=== PATIENT | female | born 1980 | race Caucasian/White ===

== ENCOUNTER 2016-09-07 06:27 | Emergency (ER) | payer MEDICARE, MEDICAID ==
[~2016-09-07 06:27] MED LIST: /AMIT10TA PO; /ONDA4TA PO; ALPR0.25 PO; AMBI12.52 PO; ANTI25TA PO; ARTIDRO OU; CITA40TA PO; FISH100035 PO; IBUP200T2 PO; KLOR10TA5 PO; LIDO1DIS2 TD; MAGN400T5 PO; NYSTATIN TOPICAL TOP; OMEP40CA2 PO; PLAQ200T PO; PRED20TA PO; PROC2.5C PR; TOPA25TA PO; ULTR50TA PO
[2016-09-07 07:29] LABS: BASO # 0.1 K/mm3 (0.0-0.2); BASO % 1.2 % (0.0-1.0); EOS # 0.1 K/mm3 (0.0-0.50); EOS % 1.5 % (0.0-3.0); LARGE UNSTAINED CELL # 0.1 K/mm3 (0.0-0.4); LARGE UNSTAINED CELL % 1.9 % (0.0-4.0); LYMPH # 3.1 K/mm3 (1.5-4.5); LYMPH % 41.5 % (24.0-44.0); MEAN CORPUSCULAR HEMOGLOBIN 29.1 pg (27.0-33.0); MEAN CORPUSCULAR HGB CONC 33.7 g/dl (32.0-36.5); MEAN CORPUSCULAR VOLUME 86.2 fl (80.0-96.0); MONO # 0.3 K/mm3 (0.0-0.8); MONO % 4.4 % (0.0-5.0); NEUTROPHILS # 3.5 K/mm3 (1.8-7.7); NEUTROPHILS % 49.5 % (36.0-66.0); PLATELET COUNT, AUTOMATED 271 k/mm3 (150-450); RED CELL DISTRIBUTION WIDTH 17.2 % (11.5-14.5); WHITE BLOOD COUNT 7.1 K/mm3 (4.0-10.0)
[2016-09-07] MEDS ORDERED: MORPHINE 4 MG/ML 1ML SYRINGE As Ordered ONE (07:46)
[2016-09-07 07:50] LABS: ANION GAP 8 MEQ/L (8-16); BLOOD UREA NITROGEN 13 MG/DL (7-18); CALCIUM LEVEL 8.9 MG/DL (8.5-10.1); CARBON DIOXIDE LEVEL 28 MEQ/L (21-32); CHLORIDE LEVEL 103 MEQ/L (98-107); CREATININE FOR GFR 0.77 MG/DL (0.55-1.02); GLOMERULAR FILTRATION RATE > 60.0 (>60); GLUCOSE, FASTING 123 MG/DL (70-105); POTASSIUM SERUM 4.5 MEQ/L (3.5-5.1); SODIUM LEVEL 139 MEQ/L (136-145)
[2016-09-07 08:02] LABS: ALBUMIN 3.6 GM/DL (3.2-5.2); ALBUMIN/GLOBULIN RATIO 1.13 (1.00-1.93); ALKALINE PHOSPHATASE 80 U/L (45-117); ALT/SGPT 32 U/L (12-78); AST/SGOT 27 U/L (15-37); BILIRUBIN,DIRECT < 0.1 MG/DL (0.0-0.2); BILIRUBIN,TOTAL 0.3 MG/DL (0.2-1.0); TOTAL PROTEIN 6.8 GM/DL (6.4-8.2)
--- NOTE | 2016-09-07 08:16 | ECGEPIP ---
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
[2016-09-07] MEDS ORDERED: KETOROLAC 30 MG/ML VIAL (J1885) As Ordered ONE (08:17)
[2016-09-07] MEDS ORDERED: ASPIRIN 81 MG CHEW TABLET As Ordered ONE (08:17)
[2016-09-07] MEDS ORDERED: ISOVUE-370 76% 100ML VIAL (Q9967) As Ordered ONE (08:19)
[2016-09-07] MEDS ORDERED: LORazepam 2 MG/ML VIAL (J2060) As Ordered ONE (08:23)
[2016-09-07] MEDS ORDERED: ONDANSETRON 4MG/2ML VIAL (J2405) As Ordered ONE (08:45)
[2016-09-07] MEDS ORDERED: GI COCKTAIL 50ML BTL(HYOSCYAMINE/MAALOX/LIDOCAINE VISCOUS)(1:3:1) As Ordered ONE (10:03)
[2016-09-07] MEDS ORDERED: HYDROmorphone HCL 1 MG/ML SYRINGE (J1170) As Ordered ONE (10:26)
--- NOTE | 2016-09-07 14:42 | EDDOCDS ---
Nurse's Notes [facility] Name: Jennifer Leonardo Age: 35 yrs Sex: Female : 1980 Arrival Date: 09/07/2016 Time: 06:27 Bed 8 Private MD: Diagnosis: Other chest pain-Chest wall pain Presentation: 09/07 06:44 Presenting complaint: Patient states: shes been sick since Tuesday with nausea, cough, ko2 runny nose and "episodes of what felt like low blood sugar". Pt was taking over the counter medications but they weren't helping and pt has been unable to eat. She was at the movies with her kids last night and her back started hurting. Around 300 am she stated that she started taking short breaths as well as holding her breath as it hurt to much to take a deep breath. Aspirin was not taken prior to arrival. Adult Sepsis Screening: The patient does not have new or worsening altered mentation. Patient's respiratory rate is less than 22. Systolic blood pressure is greater than 100. Patient has a qSOFA score of 0- Negative Sepsis Screen. Suicide/Homicide risk assessment- the patient denies having any suicidal and/or homicidal ideations and does not present with any other emotional, behavioral or mental health complaints. 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 Transition of care: patient was not received from another setting of care. 06:44 Acuity: LEXII Level 2 ko2 06:44 Method Of Arrival: Walkin/Carried/Asstd ko2 Triage Assessment: 07:15 Cardiovascular: Chest pain is described as Pain is 10 out of 10 on a pain scale. jc4 radiates Does not radiate. episodes are continuous began over night. 10:08 HIV screening NA for this visit Offered previously. 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 cetirizine 10 mg oral tab 1 tab once daily 2. acyclovir 400 mg Oral tab 1 tab 2 times per day 3. acyclovir ointment 4. Adderall XR 10 mg Oral cp24 1 cap once daily 5. Adderall XR 30 mg Oral cp24 1 cap once daily 6. Ambien 10 mg Oral tab 1 tab once daily 7. bactroban 22 gm 8. calcipotrene 120gm 9. cyclobenzaprine 10 mg Oral tab 1 tab 3 times per day 10. TriNessa Lo 0.18/0.215/0.25 mg-25 mcg oral tab 1 tab once daily 11. doxycycline hyclate 100 mg Oral cap 1 cap every 12 hours 12. Diflucan 200 mg oral tab 1 tab weekly 13. docusate sodium 100 mg Oral cap 1 cap 2 times per day 14. Drisdol 50,000 unit oral cap take 1 capsule as directed:TIW x 4wks, BIW x 8wks 15. furosemide 40 mg oral tab take 1 tab oral daily-bid as needed 16. magnesium oxide 400 mg Oral tab twice a day 17. omeprazole 40 mg Oral cpDR 1 cap once daily 18. ciclopirox topical topical take 1 small amount topical 2 times a day to affected toenails 19. Pristiq 100 mg Oral Tb24 20. propranolol 20 mg oral tab 2 times per day 21. Salex 6 % topical sham daily 22. senna 8.6 mg oral tab once daily 23. Xanax 0.5 mg oral tab 2 tabs 2x day prn 24. Zofran Oral take 4-8mg oral every 8 hours 25. Humira 40 mg/0.8 mL subcutaneous sykt 26. Probiotic Complex oral oral - PMHx: Sarcoidosis; Neurosarcoidosis; hyperlipidemia; Colitis; Lupus; Reynaud's; Syringomelia; - PSHx: Cholecystectomy; Appendectomy; - Family history: Not pertinent. - Social history: No barriers to communication noted, The patient speaks fluent Azeri, Smoking status: Patient states was never smoker of tobacco. - : The pt / caregiver states he / she is not on anticoagulants. Home medication list is obtained from home medication list. - Exposure Risk Screening:: None identified. Screenin:50 Screening information is obtained from the patient. Assistance ADL's: Requires jc4 assistance with medication administration, assistance is provided by family members. Abuse/DV Screen: The patient / caregiver reports he/she is: not in a situation that causes fear, pain or injury. 08:50 Fall risk: The following interventions are performed due to a positive Fall Risk jc4 Screen: Fall Risk is added to Special Handling on the patient Summary Screen. A Fall Risk Bracelet was applied to the patient. Side Rails are placed in the up position. A Call Motley is given with instruction to call for help when getting out of bed. 14:37 Fall risk: At risk due to apparent chemical impairment. Nutritional screening: No jc4 deficits noted. Advance Directives: There is no active DNR order. home support is adequate. Assessment: 08:20 General: Pt lying on stretcher. Sobbing, yelling on stretcher. Medicated per order. Pt jc4 reports squeezing pain in chest that radiates into back. 08:49 General: Pt lying on stretcher. Respirations easy and full. Pt complains of a squeezing jc4 sensation in chest, states is currently "10/10" at this time. No longer hyperventilating. Mother at bedside, supportive. 09:31 General: Pt lying on stretcher, moaning, uncomfortable. Complains of squeezing jc4 sensation in chest. States, "I just need something to relax the muscles". Crying. Mother at bedside, attentive and loving. 10:07 General: Appears uncomfortable. General: "my chest hurts, my back hurts, and this stuff jc4 isn't gonna take away the back pain". Pain: Pain currently is 10 out of 10 on a pain scale. Neurological: Level of Consciousness is awake, alert, Oriented to person, place, time. Cardiovascular: Rhythm is sinus rhythm No ectopy. Respiratory: Respiratory effort is even, Respiratory pattern is regular, symmetrical. Derm: Skin is pink, warm & dry. 10:09 General: When patient asked if she thought she could lie still for the CT, states, "not jc4 right now". 10:10 General: Pt refusing to keep blood pressure cuff on. jc4 10:24 General: Pt lying on stretcher, quiet and still until addressed, and then starts jc4 sniffing. States, "I need that combination. The pain medication and the Ativan". Pt made aware has additional medication orders. 10:31 General: Pt states, "the tightness is a little less, but it just hurts. It's like I've jc4 been in an accident, it hurts all over." Continues to sniffle. States, "Dilaudid always works". 11:15 General: Pt lying on stretcher with eyes closed. Respirations easy and full. Mom jc4 states, "she's finally sleeping". analytical lab analyst - sinus rhythm without ectopy. 12:47 General: Pt returned from CT. Lying on stretcher with eyes closed. Respirations easy jc4 and full. Pt states that pain "is starting to come back, can you let them know? I just don't want it to get too bad again". analytical lab analyst - sinus rhythm without ectopy. Mother at bedside. 14:34 General: Appears in no apparent distress, Behavior is cooperative. Neurological: jc4 patient is drowsy. Respiratory: Airway is patent Respiratory effort is even, unlabored, Respiratory pattern is regular, symmetrical. Derm: Skin is pink, warm & dry. Vital Signs: 06:41 BP 124 / 79 LA Supine (auto/reg); Pulse 88 MON; Resp 24 S; Temp 97.3(O); Pulse Ox 95% cln on R/A; Pain 9/10; 08:05 BP 127 / 91 (auto/); jc4 08:05 Pulse 82 MON; Pulse Ox 95% ; jc4 08:07 BP 158 / 113 (auto/); jc4 08:07 Pulse 106 MON; Pulse Ox 95% ; jc4 08:08 BP 158 / 113 RA Supine (auto/reg); dem1 08:09 BP 127 / 91 LA Supine (auto/reg); dem1 08:21 Weight 107.5 kg (R); Height 5 ft. 6 in. (167.64 cm); jc4 08:46 Pulse 66 MON; Pulse Ox 96% ; jc4 08:48 BP 128 / 64 (auto/); jc4 08:50 Pain 10/10; jc4 09:03 BP 137 / 73 (auto/); jc4 09:03 Pulse 72 MON; Pulse Ox 98% ; jc4 09:18 BP 199 / 98 (auto/); jc4 09:18 Pulse 74 MON; Pulse Ox 97% ; jc4 10:00 Pulse 62 MON; Pulse Ox 99% ; jc4 10:01 BP 180 / 77 (auto/); jc4 10:06 BP 180 / 77; Pulse 98; Resp 20; Temp 96.8(O); Pulse Ox 100% on R/A; Pain 10/10; jc4 10:22 Pulse 70 MON; Pulse Ox 98% ; jc4 10:23 BP 132 / 69 (auto/); jc4 10:31 BP 132 / 69; Pulse 78; Resp 20; Pulse Ox 99% on R/A; Pain 8/10; jc4 10:32 Pulse 80 MON; Pulse Ox 97% ; jc4 10:33 BP 123 / 64 (auto/); jc4 10:48 BP 124 / 63 (auto/); jc4 10:48 Pulse 82 MON; Pulse Ox 94% ; jc4 11:03 BP 126 / 66 (auto/); jc4 11:03 Pulse 78 MON; Pulse Ox 93% ; jc4 11:18 BP 122 / 64 (auto/); jc4 11:18 Pulse 76 MON; Pulse Ox 93% ; jc4 11:32 Pulse 84 MON; Pulse Ox 94% ; jc4 11:33 BP 129 / 72 (auto/); jc4 11:47 Pulse 84 MON; Pulse Ox 98% ; jc4 11:48 BP 117 / 56 (auto/); jc4 12:03 BP 108 / 58 (auto/); jc4 12:03 Pulse 62 MON; Pulse Ox 96% ; jc4 12:18 BP 109 / 56 (auto/); jc4 12:19 Pulse 64 MON; Pulse Ox 96% ; jc4 12:33 BP 95 / 53 (auto/); jc4 12:33 Pulse 66 MON; Pulse Ox 98% ; jc4 12:45 BP 105 / 50 (auto/); jc4 12:46 Pulse 62 MON; Pulse Ox 100% ; jc4 14:38 BP 118 / 68; Pulse 81; Resp 20; Temp 97.8(O); Pulse Ox 96% on R/A; jc4 08:21 Body Mass Index 38.25 (107.50 kg, 167.64 cm) [facility] Vitals: 14:36 Log In Time: September 07, 2016 at 06:29. [facility] ED Course: 06:28 Patient visited by Chata Stover. lja 06:28 Patient moved to Waiting lja 06:35 Tri Parra,RN is Primary Nurse. ko2 06:35 Patient moved to 8 ko2 06:38 Pt greeted and oriented to ED. Patient advised of names of staff involved in care, marissa location of call motley, wait times and NPO status. Accompanied by MOTHER, Patient has correct armband on for positive identification. Placed in gown. Bed in low position. Call light in reach. Side rails up X2. analytical lab analyst on. Pulse ox on. NIBP on. 06:41 Patient visited by Marce Mccabe PCA. cln 06:41 EKG done. (by ED staff). Reviewed by Chapin Zayas MD. cln 06:44 Patient visited by Tri Parra RN. ko2 06:47 Triage Initiated ko2 06:58 Bernadette Huitron MD is Attending Physician. sd1 07:00 Ramila Daley RN is Primary Nurse. jc4 07:07 Dulce Barahona DO is PHCP. bs6 07:15 The patient / caregiver is instructed regarding the plan of care and ED course. jc4 07:23 Basic Metabolic Profile Sent. jc4 07:23 CBC with Diff Sent. jc4 07:23 Cardiac Injury Profile Sent. jc4 07:23 Troponin Sent. jc4 07:24 Inserted saline lock: 20 gauge in left forearm The patient tolerated the procedure well.jc4 07:28 Patient visited by Dulce Barahona DO. bs6 07:28 Patient visited by Dulce Barahona DO. bs6 07:31 Primary Nurse role handed off by Tri Parra RN kpj 08:10 Patient visited by Tai Menendez. dem1 08:35 EKG done. (by ED staff). Reviewed by Dulce Barahona DO. dem1 08:36 EKG-ADULT Returned. EDMS 08:39 Patient visited by Tai Menendez. dem1 09:30 Patient visited by Ramila Daley RN. jc4 09:38 Patient visited by Lois Caldwell PCA. ct3 09:38 EKG done. (by ED staff). Reviewed by Bernadette Huitron MD. ct3 09:58 [facility] [place] Agreement was scanned into [employer] and attached to record. lg 10:09 Patient visited by Ramila Daley RN. jc4 10:28 Patient visited by Ramila Daley RN. jc4 11:48 Patient visited by Ramila Daley RN. jc4 12:46 Patient visited by Lois Caldwell PCA. ct3 12:47 Patient visited by Ramila aDley RN. jc4 14:38 Discontinued lock intact, bleeding controlled, pressure dressing applied, No jc4 redness/swelling at site. No procedures done that require assistance. Administered Medications: 07:51 Drug: morphine 4 mg [morphine 4 mg/mL intravenous cartridge (1 mL)] Route: IVP; Site: jc4 left forearm; 08:21 Drug: ketorolac 30 mg [ketorolac 30 mg/mL (1 mL) injection solution (1 mL)] Route: IVP; [facility] Site: left forearm; 08:50 Follow up: Pain 06/14 Adult [facility] 08:26 Drug: LORazepam 1 mg [lorazepam 2 mg/mL injection solution (0.5 mL)] Route: IVP; Site: [facility] left forearm; 08:28 Drug: Aspirin 81 mg [aspirin 81 mg chewable tablet (1 tabs)] Route: PO; [facility] 08:49 Drug: Ondansetron 4 mg [ondansetron HCl 2 mg/mL intravenous solution (2 mL)] Route: [facility] IVP; Site: left forearm; 09:31 Drug: LORazepam 1 mg [lorazepam 2 mg/mL injection solution (0.5 mL)] Route: IVP; Site: 4 left forearm; 10:06 Follow up: BP 180 / 77; Pulse 98 bpm; Resp 20 bpm; Temp 96.8 Oral; Pulse Ox 100% RA; [facility] Pain 10 Adult 10:06 Drug: GI Cocktail - (Alum-Mag Hydroxide-Simeth Suspension 225 mg-200 mg-25 mg/5 mL 30 jc4 ml, Lidocaine Liquid 2 % 10 ml, Hyoscyamine Liquid 10 ml) Route: PO; 10:31 Follow up: BP 132 / 69; Pulse 78 bpm; Resp 20 bpm; Pulse Ox 99% RA; Pain 04/14 Adult [facility] 10:30 Drug: Dilaudid - HYDROmorphone 0.5 mg [hydromorphone 1 mg/mL injection syringe (0.5 jc4 mL)] Route: IVP; Site: left forearm; Order Results: Lab Order: Basic Metabolic Profile; SPEC'M 09/07/16 07:22 Test: GLUCOSE, FASTING; Value: 123; Range: 70-105; Abnormal: Above high normal; Units: MG/DL; Status: F Test: BLOOD UREA NITROGEN; Value: 13; Range: 7-18; Units: MG/DL; Status: F Test: CREATININE FOR GFR; Value: 0.77; Range: 0.55-1.02; Units: MG/DL; Status: F Test: GLOMERULAR FILTRATION RATE; Value: > 60.0; Range: >60; Status: F Test: SODIUM LEVEL; Value: 139; Range: 136-145; Units: MEQ/L; Status: F Test: POTASSIUM SERUM; Value: 4.5; Range: 3.5-5.1; Units: MEQ/L; Status: F Test: CHLORIDE LEVEL; Value: 103; Range: 98-107; Units: MEQ/L; Status: F Test: CARBON DIOXIDE LEVEL; Value: 28; Range: 21-32; Units: MEQ/L; Status: F Test: ANION GAP; Value: 8; Range: 8-16; Units: MEQ/L; Status: F Test: CALCIUM LEVEL; Value: 8.9; Range: 8.5-10.1; Units: MG/DL; Status: F Test Note: ; Units are mL/min/1.73 m2 Chronic Kidney Disease Staging per NKF: Stage I & II GFR >=60 Normal to Mildly Decreased Stage III GFR 30-59 Moderately Decreased Stage IV GFR 15-29 Severely Decreased Stage V GFR <15 Very Little GFR Left ESRD GFR <15 on LINTER SAW SHARPENER Lab Order: CBC with Diff; SPEC'M 09/07/16 07:22 Test: WHITE BLOOD COUNT; Value: 7.1; Range: 4.0-10.0; Units: K/mm3; Status: F Test: RED BLOOD COUNT; Value: 4.40; Range: 4.00-5.40; Units: M/mm3; Status: F Test: HEMOGLOBIN; Value: 12.8; Range: 12.0-16.0; Units: g/dl; Status: F Test: HEMATOCRIT; Value: 37.9; Range: 36.0-47.0; Units: %; Status: F Test: MEAN CORPUSCULAR VOLUME; Value: 86.2; Range: 80.0-96.0; Units: fl; Status: F Test: MEAN CORPUSCULAR HEMOGLOBIN; Value: 29.1; Range: 27.0-33.0; Units: pg; Status: F Test: MEAN CORPUSCULAR HGB CONC; Value: 33.7; Range: 32.0-36.5; Units: g/dl; Status: F Test: RED CELL DISTRIBUTION WIDTH; Value: 17.2; Range: 11.5-14.5; Abnormal: Above high normal; Units: %; Status: F Test: PLATELET COUNT, AUTOMATED; Value: 271; Range: 150-450; Units: k/mm3; Status: F Test: NEUTROPHILS %; Value: 49.5; Range: 36.0-66.0; Units: %; Status: F Test: LYMPH %; Value: 41.5; Range: 24.0-44.0; Units: %; Status: F Test: MONO %; Value: 4.4; Range: 0.0-5.0; Units: %; Status: F Test: EOS %; Value: 1.5; Range: 0.0-3.0; Units: %; Status: F Test: BASO %; Value: 1.2; Range: 0.0-1.0; Abnormal: Above high normal; Units: %; Status: F Test: LARGE UNSTAINED CELL %; Value: 1.9; Range: 0.0-4.0; Units: %; Status: F Test: NEUTROPHILS #; Value: 3.5; Range: 1.8-7.7; Units: K/mm3; Status: F Test: LYMPH #; Value: 3.1; Range: 1.5-4.5; Units: K/mm3; Status: F Test: MONO #; Value: 0.3; Range: 0.0-0.8; Units: K/mm3; Status: F Test: EOS #; Value: 0.1; Range: 0.0-0.50; Units: K/mm3; Status: F Test: BASO #; Value: 0.1; Range: 0.0-0.2; Units: K/mm3; Status: F Test: LARGE UNSTAINED CELL #; Value: 0.1; Range: 0.0-0.4; Units: K/mm3; Status: F Lab Order: Cardiac Injury Profile; SPEC'M 09/07/16 07:22 Test: CPK CREATINE PHOSPHOKINASE; Value: 79; Range: 26-192; Units: U/L; Status: F Test: CK-MB VALUE MASS; Value: 1.0; Range: 0.0-3.6; Units: NG/ML; Status: F Test: MB/CK RELATIVE INDEX; Value: 1.26; Range: < OR =4; Status: F Test Note: ; DIAGNOSIS CRITERIA MMB ng/ml Relative Index (RI) NON-AMI < or = 5 N/A NICHOLAS ZONE > 5 < or = 4 AMI > 5 > 4 Lab Order: Troponin; [facility] 09/07/16 07:22 Test: TROPONIN I; Value: < 0.02; Range: < 0.10; Units: NG/ML; Status: F Test Note: ; Troponin I Reference Interval for My [employer] LOCI: 99th Percentile= 0.00-0.045 ng/ml Risk Stratification: <= 0.10 ng/ml Decreased Risk for Adverse Clinical Events. 0.10-1.50 ng/ml Increased Risk for Adverse Clinical Events. Evaluation of additional criterion and/or repeat testing in 2-6 hours is suggested to rule out myocardial damage. >= 1.50 ng/ml Indicative of Myocardial Injury. Lab Order: LIPASE; [facility] 09/07/16 07:22 Test: LIPASE; Value: 236; Range: 73-393; Units: U/L; Status: F Lab Order: LIVER PROFILE; [facility] 09/07/16 07:22 Test: AST/SGOT; Value: 27; Range: 15-37; Units: U/L; Status: F Test: ALT/SGPT; Value: 32; Range: 12-78; Units: U/L; Status: F Test: ALKALINE PHOSPHATASE; Value: 80; Range: 45-117; Units: U/L; Status: F Test: BILIRUBIN,TOTAL; Value: 0.3; Range: 0.2-1.0; Units: MG/DL; Status: F Test: BILIRUBIN,DIRECT; Value: < 0.1; Range: 0.0-0.2; Units: MG/DL; Status: F Test: TOTAL PROTEIN; Value: 6.8; Range: 6.4-8.2; Units: GM/DL; Status: F Test: ALBUMIN; Value: 3.6; Range: 3.2-5.2; Units: GM/DL; Status: F Test: ALBUMIN/GLOBULIN RATIO; Value: 1.13; Range: 1.00-1.93; Status: F Lab Order: D-Dimer Quant; SPEC'M 09/07/16 08:18 Test: D-DIMER QUANT; Value: 417.5; Range: <500; Units: ng/ml; Status: F Lab Order: CARDIAC MARKER PANEL; SPEC'M 09/07/16 09:55 Test: CPK CREATINE PHOSPHOKINASE; Value: 56; Range: 26-192; Units: U/L; Status: F Test: CK-MB VALUE MASS; Value: 1.0; Range: 0.0-3.6; Units: NG/ML; Status: F Test: MB/CK RELATIVE INDEX; Value: 1.78; Range: < OR =4; Status: F Test: TROPONIN I; Value: < 0.02; Range: < 0.10; Units: NG/ML; Status: F Test Note: ; DIAGNOSIS CRITERIA MMB ng/ml Relative Index (RI) NON-AMI < or = 5 N/A NICHOLAS ZONE > 5 < or = 4 AMI > 5 > 4 Radiology Order: EKG-ADULT Test: EKG-ADULT REASON FOR EXAMINATION: Chest Pain; Stationary ECG Study; [facility] - ED; ; Test Date: 2016-09-07; Pat Name: JENNIFER LEONARDO Department:; Room: -; Gender: F As400 Programmer: que; : 1980 Requested By: Chapin Flores; Order Number: [id number] Reading MD: Bernadette Huitron; Measurements; Intervals [place]; Rate: 77 P: 40; [place]: 143 QRS: -3; QRSD: 78 T: 44; QT: 381; QTc: 431; Interpretive Statements; SINUS RHYTHM WITH SINUS ARRHYTHMIA; LOW QRS VOLTAGE IN PRECORDIAL LEADS; DELAYED R PROGRESSION; SIMILAR 07/02/14; Electronically Signed On 09-07-2016 8:15:50 EST by Bernadette Huitron; Outcome: 14:01 Discharge ordered by Provider. bs6 14:39 Discharge Assessment: Patient awake, alert and oriented x 3. No cognitive and/or jc4 functional deficits noted. Patient verbalized understanding of disposition instructions. patient administered narcotics - yes. Pt provided with safe discharge. The following High Risk Discharge criteria are identified: None. Discharged to home via wheelchair, with parent. Condition: stable. Discharge instructions given to patient, Instructed on discharge instructions, follow up and referral plans. medication usage, Demonstrated understanding of instructions, medications, Pt was receptive of discharge instructions/ teaching. Prescriptions given X 1. CT Study completed. Property :Personal belongings accompany Pt. 14:40 Patient left the ED. [facility] Signatures: Dispatcher [employer] [facility] Bernadette Huitron MD MD sd1 Nadira Waters, RN RN Al Zafar, Reg Reg lg Ramila Daley, RN RN jc4 Albina Mesa, COMMUNICATION CENTER OPERATOR COMMUNICATION CENTER OPERATOR marissa Lois Caldwell, COMMUNICATION CENTER OPERATOR COMMUNICATION CENTER OPERATOR ct3 Tai Menendez1 Dulce Barahona, DO bs6 Tri Parra,RN RN ko2 Jolanta, Chata Mccabe, Marce, COMMUNICATION CENTER OPERATOR COMMUNICATION CENTER OPERATOR cln Corrections: (The following items were deleted from the chart) 07:51 07:31 LIPASE+LAB sent. [facility] EDVA 07:51 07:31 LIVER PROFILE+LAB sent. [facility]VA 14:35 10:07 Respiratory: Respiratory effort is even, Respiratory pattern is regular, [place] [id number] MTDD
--- NOTE | 2016-09-07 14:43 | EDDOCDS ---
Physician Documentation [facility] Name: More Leonardo Age: 35 yrs Sex: Female : 1980 Arrival Date: 09/07/2016 Time: 06:27 Bed 8 Private MD: Disposition: 09/07 13:47 I have independently interviewed and examined the patient, and I agree with the sd1 investigation, diagnosis and treatment plan as documented by the Resident. Disposition: 09/07/16 14:01 Discharged to Home/Self Care. Impression: Other chest pain - Chest wall pain. - Condition is Stable. - Discharge Instructions: Chest Wall Pain. - Prescriptions for Ibuprofen 600 mg Oral Tablet - take 1 tablet by ORAL route every 6 hours As needed take with food; 30 tablet. - Medication Reconciliation, Local Pharmacy Hours form. - Follow up: Private Physician; When: PCP in [place]; Reason: Recheck today's complaints, Continuance of care. - Problem is new. - Symptoms have improved. Historical: - Allergies: SULFA (SULFONAMIDES); - Home Meds: 1. cetirizine 10 mg oral tab 1 tab once daily 2. acyclovir 400 mg Oral tab 1 tab 2 times per day 3. acyclovir ointment 4. Adderall XR 10 mg Oral cp24 1 cap once daily 5. Adderall XR 30 mg Oral cp24 1 cap once daily 6. Ambien 10 mg Oral tab 1 tab once daily 7. bactroban 22 gm 8. calcipotrene 120gm 9. cyclobenzaprine 10 mg Oral tab 1 tab 3 times per day 10. TriNessa Lo 0.18/0.215/0.25 mg-25 mcg oral tab 1 tab once daily 11. doxycycline hyclate 100 mg Oral cap 1 cap every 12 hours 12. Diflucan 200 mg oral tab 1 tab weekly 13. docusate sodium 100 mg Oral cap 1 cap 2 times per day 14. Drisdol 50,000 unit oral cap take 1 capsule as directed:TIW x 4wks, BIW x 8wks 15. furosemide 40 mg oral tab take 1 tab oral daily-bid as needed 16. magnesium oxide 400 mg Oral tab twice a day 17. omeprazole 40 mg Oral cpDR 1 cap once daily 18. ciclopirox topical topical take 1 small amount topical 2 times a day to affected toenails 19. Pristiq 100 mg Oral Tb24 20. propranolol 20 mg oral tab 2 times per day 21. Salex 6 % topical sham daily 22. senna 8.6 mg oral tab once daily 23. Xanax 0.5 mg oral tab 2 tabs 2x day prn 24. Zofran Oral take 4-8mg oral every 8 hours 25. Humira 40 mg/0.8 mL subcutaneous sykt 26. Probiotic Complex oral oral - PMHx: Sarcoidosis; Neurosarcoidosis; hyperlipidemia; Colitis; Lupus; Reynaud's; Syringomelia; - PSHx: Cholecystectomy; Appendectomy; - Family history: Not pertinent. - Social history: No barriers to communication noted, The patient speaks fluent Maori, Smoking status: Patient states was never smoker of tobacco. - : The pt / caregiver states he / she is not on anticoagulants. Home medication list is obtained from home medication list. - Exposure Risk Screening:: None identified. 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 6 in. (167.64 cm); jc4 08:46 Pulse 66 MON; Pulse Ox 96% ; jc4 08:48 BP 128 / 64 (auto/); jc4 08:50 Pain 10/10; jc4 09:03 BP 137 / 73 (auto/); jc4 09:03 Pulse 72 MON; Pulse Ox 98% ; jc4 09:18 BP 199 / 98 (auto/); jc4 09:18 Pulse 74 MON; Pulse Ox 97% ; jc4 10:00 Pulse 62 MON; Pulse Ox 99% ; jc4 10:01 BP 180 / 77 (auto/); jc4 10:06 BP 180 / 77; Pulse 98; Resp 20; Temp 96.8(O); Pulse Ox 100% on R/A; Pain 10/10; jc4 10:22 Pulse 70 MON; Pulse Ox 98% ; jc4 10:23 BP 132 / 69 (auto/); jc4 10:31 BP 132 / 69; Pulse 78; Resp 20; Pulse Ox 99% on R/A; Pain 8/10; jc4 10:32 Pulse 80 MON; Pulse Ox 97% ; jc4 10:33 BP 123 / 64 (auto/); jc4 10:48 BP 124 / 63 (auto/); jc4 10:48 Pulse 82 MON; Pulse Ox 94% ; jc4 11:03 BP 126 / 66 (auto/); jc4 11:03 Pulse 78 MON; Pulse Ox 93% ; jc4 11:18 BP 122 / 64 (auto/); jc4 11:18 Pulse 76 MON; Pulse Ox 93% ; jc4 11:32 Pulse 84 MON; Pulse Ox 94% ; jc4 11:33 BP 129 / 72 (auto/); jc4 11:47 Pulse 84 MON; Pulse Ox 98% ; jc4 11:48 BP 117 / 56 (auto/); jc4 12:03 BP 108 / 58 (auto/); jc4 12:03 Pulse 62 MON; Pulse Ox 96% ; jc4 12:18 BP 109 / 56 (auto/); jc4 12:19 Pulse 64 MON; Pulse Ox 96% ; jc4 12:33 BP 95 / 53 (auto/); jc4 12:33 Pulse 66 MON; Pulse Ox 98% ; jc4 12:45 BP 105 / 50 (auto/); jc4 12:46 Pulse 62 MON; Pulse Ox 100% ; jc4 14:38 BP 118 / 68; Pulse 81; Resp 20; Temp 97.8(O); Pulse Ox 96% on R/A; jc4 08:21 Body Mass Index 38.25 (107.50 kg, 167.64 cm) jc4 MDM: 06:36 ECG WITH READING ER PHYS+CARDIAG ordered. EDMS 06:51 Bung Dropper/Pulse Ox/q 30 min VS ordered. sd1 06:51 IV Saline Lock ordered. sd1 06:51 Rhythm Strip to chart ordered. sd1 06:51 Undress patient appropriately for examination ordered. sd1 06:52 Basic Metabolic Profile Ordered. EDMS 06:52 CBC with Diff Ordered. EDMS 06:52 Cardiac Injury Profile Ordered. EDMS 06:52 Troponin Ordered. EDMS 06:52 portable chest Ordered. EDMS 07:38 morphine 4 mg IVP once ordered. bs6 07:51 LIPASE Ordered. EDMS 07:52 LIVER PROFILE Ordered. EDMS 07:54 Financial registration complete. lg 07:59 Basic Metabolic Profile Reviewed. sd1 07:59 CBC with Diff Reviewed. sd1 07:59 Cardiac Injury Profile Reviewed. sd1 07:59 Troponin Reviewed. sd1 08:00 Aspirin Chewable Tablet 81 mg PO once ordered. bs6 08:01 Misc. Nursing Order ordered. sd1 08:01 ketorolac 30 mg IVP once ordered. bs6 08:02 D-Dimer Quant Ordered. EDMS 08:05 Misc Chiropractic Practice Manager Order ordered. bs6 08:05 Repeat EKG (put time details section) ordered. bs6 08:08 Misc Chiropractic Practice Manager Order complete. lbd 08:08 Repeat EKG (put time details section) complete. lbd 08:11 ECG WITH READING ER PHYS ordered. EDMS 08:11 CARDIAC MARKER PANEL Ordered. EDMS 08:12 Repeat EKG (put time details section) ordered. bs6 08:13 CT Chest Angio R/O PE Ordered. EDMS 08:16 Repeat EKG (put time details section) complete. lbd 08:18 ECG WITH READING ER PHYS ordered. EDMS 08:19 LORazepam 1 mg IVP once ordered. bs6 08:33 Ondansetron 4 mg IVP once ordered. bs6 09:22 LORazepam 1 mg IVP once ordered. bs6 09:54 Basic Metabolic Profile Reviewed. sd1 09:54 Cardiac Injury Profile Reviewed. sd1 09:54 Troponin Reviewed. sd1 09:54 LIPASE Reviewed. sd1 09:54 LIVER PROFILE Reviewed. sd1 09:54 D-Dimer Quant Reviewed. sd1 09:54 EKG-ADULT Reviewed. sd1 09:58 [facility] Payment Agreement was scanned into [employer] and attached to record. lg 10:03 GI Cocktail - (Alum-Mag Hydroxide-Simeth 30 ml, Lidocaine 10 ml, Hyoscyamine 10 ml) PO bs6 once; Pre-mixed 50mL unit dose ordered. 10:03 Dilaudid - HYDROmorphone 0.5 mg IVP once ordered. bs6 10:29 CARDIAC MARKER PANEL Reviewed. sd1 12:57 Misc. Nursing Order ordered. sd1 Administered Medications: 07:51 Drug: morphine 4 mg [morphine 4 mg/mL intravenous cartridge (1 mL)] Route: IVP; Site: jc4 left forearm; 08:21 Drug: ketorolac 30 mg [ketorolac 30 mg/mL (1 mL) injection solution (1 mL)] Route: IVP; 4 Site: left forearm; 08:50 Follow up: Pain 06/14 Adult 4 08:26 Drug: LORazepam 1 mg [lorazepam 2 mg/mL injection solution (0.5 mL)] Route: IVP; Site: jc4 left forearm; 08:28 Drug: Aspirin 81 mg [aspirin 81 mg chewable tablet (1 tabs)] Route: PO; 4 08:49 Drug: Ondansetron 4 mg [ondansetron HCl 2 mg/mL intravenous solution (2 mL)] Route: jc4 IVP; Site: left forearm; 09:31 Drug: LORazepam 1 mg [lorazepam 2 mg/mL injection solution (0.5 mL)] Route: IVP; Site: jc4 left forearm; 10:06 Follow up: BP 180 / 77; Pulse 98 bpm; Resp 20 bpm; Temp 96.8 Oral; Pulse Ox 100% RA; 4 Pain 10 Adult 10:06 Drug: GI Cocktail - (Alum-Mag Hydroxide-Simeth Suspension 225 mg-200 mg-25 mg/5 mL 30 jc4 ml, Lidocaine Liquid 2 % 10 ml, Hyoscyamine Liquid 10 ml) Route: PO; 10:31 Follow up: BP 132 / 69; Pulse 78 bpm; Resp 20 bpm; Pulse Ox 99% RA; Pain 04/14 Adult jc4 10:30 Drug: Dilaudid - HYDROmorphone 0.5 mg [hydromorphone 1 mg/mL injection syringe (0.5 jc4 mL)] Route: IVP; Site: left forearm; Signatures: Dispatcher [employer] EDBernadette Starks MD MD sd1 Grace García, Batch Still Operator Unit lbd Al Pavon, Ramila Resendez lg, RN RN jc4 Dulce Barahona DO DO bs6 Tri Parra,RN RN ko2 The chart was reviewed and I authenticate all verbal orders and agree with the evaluation and treatment provided.Corrections: (The following items were deleted from the chart) 07:51 07:30 LIPASE+LAB ordered. EDMS EDMS 07:51 07:30 LIVER PROFILE+LAB ordered. EDMS EDMS 09:05 09:02 SPUTUM CULTURE AND GRAM STAIN+SUKHJINDER ordered. EDMS EDMS Attachments: 09:58 [facility] Payment Agreement lg MTDD
--- NOTE | 2016-09-07 15:09 | REP ---
CTA chest 09/07/2016 Indication: Chest pain Comparison: CTA chest 07/02/2014 ; portable chest 09/07/2016 Technique: Following dynamic IV contrast administration of 75 ml Isovue 370 mg/ml, 3 mm spiral axial sections performed through chest. Findings: The thoracic aorta is without aneurysm or visualized dissection. There is some motion artifact in the ascending thoracic aorta. The cardiac silhouette is borderline in size. There is persistent subcarinal adenopathy measuring up to 10 mm size, borderline in size and unchanged. There are no pathologically enlarged hilar nodes. There is homogeneous opacification of the pulmonary arteries bilaterally without filling defects or findings to suggest pulmonary artery emboli half interstitial changes are seen bilaterally most compatible with interstitial scarring. There a small bibasilar bullous changes. There is mild diffuse fatty infiltration of liver. Liver is 17.9 cm craniocaudal dimension, borderline enlarged. The spleen is 12 cm in length, borderline in size. It has been prior cholecystectomy. Visualized portions of pancreas within normal limits Impression 1. No evidence of pulmonary artery emboli. 2. Cardiac silhouette is borderline in size. Stable subcarinal adenopathy ,10 mm short-axis diameter 3. Bilateral interstitial changes most compatible with scarring. Nonspecific pneumonitis may be considered less likely Small bullous changes also noted bilaterally as can be seen with COPD. 4. Spleen borderline in size. Mild diffuse fatty infiltration of liver Signed by Cary Viveros MD 09/07/2016 03:00 P
--- NOTE | 2016-09-07 15:09 | REP ---
AP PORTABLE SITTING CHEST RADIOGRAPH: 09/07/2016 INDICATION: Chest pain COMPARISON: Portable chest 05/21/2013 from [facility] FINDINGS: The cardiac silhouette and mediastinal silhouette are within normal limits. Lungs are clear. Bones and soft tissues within normal limits. IMPRESSION: Negative portable chest radiograph. Signed by Cary Viveros MD 09/07/2016 08:31 P
--- NOTE | 2016-09-08 19:31 | ECGEPIP ---
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
--- NOTE | 2016-09-08 19:35 | ECGEPIP ---
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
--- NOTE | 2016-09-09 15:41 | EDDOCDS ---
Physician Documentation [facility] Name: More Leonardo Age: 35 yrs Sex: Female : 1980 Arrival Date: 09/07/2016 Time: 06:27 Bed 8 Private MD: Disposition: 09/07 13:47 I have independently interviewed and examined the patient, and I agree with the sd1 investigation, diagnosis and treatment plan as documented by the Resident. Disposition: 09/07/16 14:01 Discharged to Home/Self Care. Impression: Other chest pain - Chest wall pain. - Condition is Stable. - Discharge Instructions: Chest Wall Pain. - Prescriptions for Ibuprofen 600 mg Oral Tablet - take 1 tablet by ORAL route every 6 hours As needed take with food; 30 tablet. - Medication Reconciliation, Local Pharmacy Hours form. - Follow up: Private Physician; When: PCP in [place]; Reason: Recheck today's complaints, Continuance of care. - Problem is new. - Symptoms have improved. Historical: - Allergies: SULFA (SULFONAMIDES); - Home Meds: 1. cetirizine 10 mg oral tab 1 tab once daily 2. acyclovir 400 mg Oral tab 1 tab 2 times per day 3. acyclovir ointment 4. Adderall XR 10 mg Oral cp24 1 cap once daily 5. Adderall XR 30 mg Oral cp24 1 cap once daily 6. Ambien 10 mg Oral tab 1 tab once daily 7. bactroban 22 gm 8. calcipotrene 120gm 9. cyclobenzaprine 10 mg Oral tab 1 tab 3 times per day 10. TriNessa Lo 0.18/0.215/0.25 mg-25 mcg oral tab 1 tab once daily 11. doxycycline hyclate 100 mg Oral cap 1 cap every 12 hours 12. Diflucan 200 mg oral tab 1 tab weekly 13. docusate sodium 100 mg Oral cap 1 cap 2 times per day 14. Drisdol 50,000 unit oral cap take 1 capsule as directed:TIW x 4wks, BIW x 8wks 15. furosemide 40 mg oral tab take 1 tab oral daily-bid as needed 16. magnesium oxide 400 mg Oral tab twice a day 17. omeprazole 40 mg Oral cpDR 1 cap once daily 18. ciclopirox topical topical take 1 small amount topical 2 times a day to affected toenails 19. Pristiq 100 mg Oral Tb24 20. propranolol 20 mg oral tab 2 times per day 21. Salex 6 % topical sham daily 22. senna 8.6 mg oral tab once daily 23. Xanax 0.5 mg oral tab 2 tabs 2x day prn 24. Zofran Oral take 4-8mg oral every 8 hours 25. Humira 40 mg/0.8 mL subcutaneous sykt 26. Probiotic Complex oral oral - PMHx: Sarcoidosis; Neurosarcoidosis; hyperlipidemia; Colitis; Lupus; Reynaud's; Syringomelia; - PSHx: Cholecystectomy; Appendectomy; - Family history: Not pertinent. - Social history: No barriers to communication noted, The patient speaks fluent Burmese, Smoking status: Patient states was never smoker of tobacco. - : The pt / caregiver states he / she is not on anticoagulants. Home medication list is obtained from home medication list. - Exposure Risk Screening:: None identified. 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 6 in. (167.64 cm); jc4 08:46 Pulse 66 MON; Pulse Ox 96% ; jc4 08:48 BP 128 / 64 (auto/); jc4 08:50 Pain 10/10; jc4 09:03 BP 137 / 73 (auto/); jc4 09:03 Pulse 72 MON; Pulse Ox 98% ; jc4 09:18 BP 199 / 98 (auto/); jc4 09:18 Pulse 74 MON; Pulse Ox 97% ; jc4 10:00 Pulse 62 MON; Pulse Ox 99% ; jc4 10:01 BP 180 / 77 (auto/); jc4 10:06 BP 180 / 77; Pulse 98; Resp 20; Temp 96.8(O); Pulse Ox 100% on R/A; Pain 10/10; jc4 10:22 Pulse 70 MON; Pulse Ox 98% ; jc4 10:23 BP 132 / 69 (auto/); jc4 10:31 BP 132 / 69; Pulse 78; Resp 20; Pulse Ox 99% on R/A; Pain 8/10; jc4 10:32 Pulse 80 MON; Pulse Ox 97% ; jc4 10:33 BP 123 / 64 (auto/); jc4 10:48 BP 124 / 63 (auto/); jc4 10:48 Pulse 82 MON; Pulse Ox 94% ; jc4 11:03 BP 126 / 66 (auto/); jc4 11:03 Pulse 78 MON; Pulse Ox 93% ; jc4 11:18 BP 122 / 64 (auto/); jc4 11:18 Pulse 76 MON; Pulse Ox 93% ; jc4 11:32 Pulse 84 MON; Pulse Ox 94% ; jc4 11:33 BP 129 / 72 (auto/); jc4 11:47 Pulse 84 MON; Pulse Ox 98% ; jc4 11:48 BP 117 / 56 (auto/); jc4 12:03 BP 108 / 58 (auto/); jc4 12:03 Pulse 62 MON; Pulse Ox 96% ; jc4 12:18 BP 109 / 56 (auto/); jc4 12:19 Pulse 64 MON; Pulse Ox 96% ; jc4 12:33 BP 95 / 53 (auto/); jc4 12:33 Pulse 66 MON; Pulse Ox 98% ; jc4 12:45 BP 105 / 50 (auto/); jc4 12:46 Pulse 62 MON; Pulse Ox 100% ; jc4 14:38 BP 118 / 68; Pulse 81; Resp 20; Temp 97.8(O); Pulse Ox 96% on R/A; jc4 08:21 Body Mass Index 38.25 (107.50 kg, 167.64 cm) jc4 MDM: 06:36 ECG WITH READING ER PHYS+CARDIAG ordered. EDMS 06:51 Explosive Operator Fuse/Pulse Ox/q 30 min VS ordered. sd1 06:51 IV Saline Lock ordered. sd1 06:51 Rhythm Strip to chart ordered. sd1 06:51 Undress patient appropriately for examination ordered. sd1 06:52 Basic Metabolic Profile Ordered. EDMS 06:52 CBC with Diff Ordered. EDMS 06:52 Cardiac Injury Profile Ordered. EDMS 06:52 Troponin Ordered. EDMS 06:52 portable chest Ordered. EDMS 07:38 morphine 4 mg IVP once ordered. bs6 07:51 LIPASE Ordered. EDMS 07:52 LIVER PROFILE Ordered. EDMS 07:54 Financial registration complete. lg 07:59 Basic Metabolic Profile Reviewed. sd1 07:59 CBC with Diff Reviewed. sd1 07:59 Cardiac Injury Profile Reviewed. sd1 07:59 Troponin Reviewed. sd1 08:00 Aspirin Chewable Tablet 81 mg PO once ordered. bs6 08:01 Misc. Nursing Order ordered. sd1 08:01 ketorolac 30 mg IVP once ordered. bs6 08:02 D-Dimer Quant Ordered. EDMS 08:05 Misc Word Processing Machine Operator Order ordered. bs6 08:05 Repeat EKG (put time details section) ordered. bs6 08:08 Misc Word Processing Machine Operator Order complete. lbd 08:08 Repeat EKG (put time details section) complete. lbd 08:11 ECG WITH READING ER PHYS ordered. EDMS 08:11 CARDIAC MARKER PANEL Ordered. EDMS 08:12 Repeat EKG (put time details section) ordered. bs6 08:13 CT Chest Angio R/O PE Ordered. EDMS 08:16 Repeat EKG (put time details section) complete. lbd 08:18 ECG WITH READING ER PHYS ordered. EDMS 08:19 LORazepam 1 mg IVP once ordered. bs6 08:33 Ondansetron 4 mg IVP once ordered. bs6 09:22 LORazepam 1 mg IVP once ordered. bs6 09:54 Basic Metabolic Profile Reviewed. sd1 09:54 Cardiac Injury Profile Reviewed. sd1 09:54 Troponin Reviewed. sd1 09:54 LIPASE Reviewed. sd1 09:54 LIVER PROFILE Reviewed. sd1 09:54 D-Dimer Quant Reviewed. sd1 09:54 EKG-ADULT Reviewed. sd1 09:58 [facility] Payment Agreement was scanned into [employer] and attached to record. lg 10:03 GI Cocktail - (Alum-Mag Hydroxide-Simeth 30 ml, Lidocaine 10 ml, Hyoscyamine 10 ml) PO bs6 once; Pre-mixed 50mL unit dose ordered. 10:03 Dilaudid - HYDROmorphone 0.5 mg IVP once ordered. bs6 10:29 CARDIAC MARKER PANEL Reviewed. sd1 12:57 Misc. Nursing Order ordered. sd1 09/08 11:54 T-Sheet-- Draft Copy was scanned into [employer] and attached to record. gb 11:55 ECG/EKG was scanned into [employer] and attached to record. gb 11:55 Trend VS was scanned into [employer] and attached to record. gb 11:55 Radiology Report was scanned into [employer] and attached to record. gb Administered Medications: 09/07 07:51 Drug: morphine 4 mg [morphine 4 mg/mL intravenous cartridge (1 mL)] Route: IVP; Site: [facility] left forearm; 08:21 Drug: ketorolac 30 mg [ketorolac 30 mg/mL (1 mL) injection solution (1 mL)] Route: IVP; [facility] Site: left forearm; 08:50 Follow up: Pain 06/14 Adult [facility] 08:26 Drug: LORazepam 1 mg [lorazepam 2 mg/mL injection solution (0.5 mL)] Route: IVP; Site: [facility] left forearm; 08:28 Drug: Aspirin 81 mg [aspirin 81 mg chewable tablet (1 tabs)] Route: PO; [facility] 08:49 Drug: Ondansetron 4 mg [ondansetron HCl 2 mg/mL intravenous solution (2 mL)] Route: 4 IVP; Site: left forearm; 09:31 Drug: LORazepam 1 mg [lorazepam 2 mg/mL injection solution (0.5 mL)] Route: IVP; Site: [facility] left forearm; 10:06 Follow up: BP 180 / 77; Pulse 98 bpm; Resp 20 bpm; Temp 96.8 Oral; Pulse Ox 100% RA; 4 Pain 10 Adult 10:06 Drug: GI Cocktail - (Alum-Mag Hydroxide-Simeth Suspension 225 mg-200 mg-25 mg/5 mL 30 jc4 ml, Lidocaine Liquid 2 % 10 ml, Hyoscyamine Liquid 10 ml) Route: PO; 10:31 Follow up: BP 132 / 69; Pulse 78 bpm; Resp 20 bpm; Pulse Ox 99% RA; Pain 8 Adult [facility] 10:30 Drug: Dilaudid - HYDROmorphone 0.5 mg [hydromorphone 1 mg/mL injection syringe (0.5 jc4 mL)] Route: IVP; Site: left forearm; Signatures: Dispatcher [employer] EDMS Bernadette Huitron MD MD sd1 Grace García, Can Piler Unit lbd WilburbernardozenaEda, Reg Reg gb DoraAl escoto, Reg Reg lg Ramila Daley RN RN jc4 Dulce Barahona, DO bs6 Tri ParraRN RN ko2 The chart was reviewed and I authenticate all verbal orders and agree with the evaluation and treatment provided.Corrections: (The following items were deleted from the chart) 07:51 07:30 LIPASE+LAB ordered. EDMS EDMS 07:51 07:30 LIVER PROFILE+LAB ordered. EDMS EDMS 09:05 09:02 SPUTUM CULTURE AND GRAM STAIN+SUKHJINDER ordered. EDMS EDMS Attachments: 09:58 [facility] Payment Agreement lg 09/08 11:54 T-Sheet-- Draft Copy gb 11:55 ECG/EKG gb Chart Complete MTDD
--- NOTE | 2016-09-09 15:41 | EDDOCDS ---
Physician Documentation [facility] Name: More Leonardo Age: 35 yrs Sex: Female : 1980 Arrival Date: 09/07/2016 Time: 06:27 Bed 8 Private MD: Disposition: 09/07 13:47 I have independently interviewed and examined the patient, and I agree with the sd1 investigation, diagnosis and treatment plan as documented by the Resident. Disposition: 09/07/16 14:01 Discharged to Home/Self Care. Impression: Other chest pain - Chest wall pain. - Condition is Stable. - Discharge Instructions: Chest Wall Pain. - Prescriptions for Ibuprofen 600 mg Oral Tablet - take 1 tablet by ORAL route every 6 hours As needed take with food; 30 tablet. - Medication Reconciliation, Local Pharmacy Hours form. - Follow up: Private Physician; When: PCP in [place]; Reason: Recheck today's complaints, Continuance of care. - Problem is new. - Symptoms have improved. Historical: - Allergies: SULFA (SULFONAMIDES); - Home Meds: 1. cetirizine 10 mg oral tab 1 tab once daily 2. acyclovir 400 mg Oral tab 1 tab 2 times per day 3. acyclovir ointment 4. Adderall XR 10 mg Oral cp24 1 cap once daily 5. Adderall XR 30 mg Oral cp24 1 cap once daily 6. Ambien 10 mg Oral tab 1 tab once daily 7. bactroban 22 gm 8. calcipotrene 120gm 9. cyclobenzaprine 10 mg Oral tab 1 tab 3 times per day 10. TriNessa Lo 0.18/0.215/0.25 mg-25 mcg oral tab 1 tab once daily 11. doxycycline hyclate 100 mg Oral cap 1 cap every 12 hours 12. Diflucan 200 mg oral tab 1 tab weekly 13. docusate sodium 100 mg Oral cap 1 cap 2 times per day 14. Drisdol 50,000 unit oral cap take 1 capsule as directed:TIW x 4wks, BIW x 8wks 15. furosemide 40 mg oral tab take 1 tab oral daily-bid as needed 16. magnesium oxide 400 mg Oral tab twice a day 17. omeprazole 40 mg Oral cpDR 1 cap once daily 18. ciclopirox topical topical take 1 small amount topical 2 times a day to affected toenails 19. Pristiq 100 mg Oral Tb24 20. propranolol 20 mg oral tab 2 times per day 21. Salex 6 % topical sham daily 22. senna 8.6 mg oral tab once daily 23. Xanax 0.5 mg oral tab 2 tabs 2x day prn 24. Zofran Oral take 4-8mg oral every 8 hours 25. Humira 40 mg/0.8 mL subcutaneous sykt 26. Probiotic Complex oral oral - PMHx: Sarcoidosis; Neurosarcoidosis; hyperlipidemia; Colitis; Lupus; Reynaud's; Syringomelia; - PSHx: Cholecystectomy; Appendectomy; - Family history: Not pertinent. - Social history: No barriers to communication noted, The patient speaks fluent [place], Smoking status: Patient states was never smoker of tobacco. - : The pt / caregiver states he / she is not on anticoagulants. Home medication list is obtained from home medication list. - Exposure Risk Screening:: None identified. 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 6 in. (167.64 cm); jc4 08:46 Pulse 66 MON; Pulse Ox 96% ; jc4 08:48 BP 128 / 64 (auto/); jc4 08:50 Pain 10/10; jc4 09:03 BP 137 / 73 (auto/); jc4 09:03 Pulse 72 MON; Pulse Ox 98% ; jc4 09:18 BP 199 / 98 (auto/); jc4 09:18 Pulse 74 MON; Pulse Ox 97% ; jc4 10:00 Pulse 62 MON; Pulse Ox 99% ; jc4 10:01 BP 180 / 77 (auto/); jc4 10:06 BP 180 / 77; Pulse 98; Resp 20; Temp 96.8(O); Pulse Ox 100% on R/A; Pain 10/10; jc4 10:22 Pulse 70 MON; Pulse Ox 98% ; jc4 10:23 BP 132 / 69 (auto/); jc4 10:31 BP 132 / 69; Pulse 78; Resp 20; Pulse Ox 99% on R/A; Pain 8/10; jc4 10:32 Pulse 80 MON; Pulse Ox 97% ; jc4 10:33 BP 123 / 64 (auto/); jc4 10:48 BP 124 / 63 (auto/); jc4 10:48 Pulse 82 MON; Pulse Ox 94% ; jc4 11:03 BP 126 / 66 (auto/); jc4 11:03 Pulse 78 MON; Pulse Ox 93% ; jc4 11:18 BP 122 / 64 (auto/); jc4 11:18 Pulse 76 MON; Pulse Ox 93% ; jc4 11:32 Pulse 84 MON; Pulse Ox 94% ; jc4 11:33 BP 129 / 72 (auto/); jc4 11:47 Pulse 84 MON; Pulse Ox 98% ; jc4 11:48 BP 117 / 56 (auto/); jc4 12:03 BP 108 / 58 (auto/); jc4 12:03 Pulse 62 MON; Pulse Ox 96% ; jc4 12:18 BP 109 / 56 (auto/); jc4 12:19 Pulse 64 MON; Pulse Ox 96% ; jc4 12:33 BP 95 / 53 (auto/); jc4 12:33 Pulse 66 MON; Pulse Ox 98% ; jc4 12:45 BP 105 / 50 (auto/); jc4 12:46 Pulse 62 MON; Pulse Ox 100% ; jc4 14:38 BP 118 / 68; Pulse 81; Resp 20; Temp 97.8(O); Pulse Ox 96% on R/A; jc4 08:21 Body Mass Index 38.25 (107.50 kg, 167.64 cm) jc4 MDM: 06:36 ECG WITH READING ER PHYS+CARDIAG ordered. EDMS 06:51 Night Club Manager/Pulse Ox/q 30 min VS ordered. sd1 06:51 IV Saline Lock ordered. sd1 06:51 Rhythm Strip to chart ordered. sd1 06:51 Undress patient appropriately for examination ordered. sd1 06:52 Basic Metabolic Profile Ordered. EDMS 06:52 CBC with Diff Ordered. EDMS 06:52 Cardiac Injury Profile Ordered. EDMS 06:52 Troponin Ordered. EDMS 06:52 portable chest Ordered. EDMS 07:38 morphine 4 mg IVP once ordered. bs6 07:51 LIPASE Ordered. EDMS 07:52 LIVER PROFILE Ordered. EDMS 07:54 Financial registration complete. lg 07:59 Basic Metabolic Profile Reviewed. sd1 07:59 CBC with Diff Reviewed. sd1 07:59 Cardiac Injury Profile Reviewed. sd1 07:59 Troponin Reviewed. sd1 08:00 Aspirin Chewable Tablet 81 mg PO once ordered. bs6 08:01 Misc. Nursing Order ordered. sd1 08:01 ketorolac 30 mg IVP once ordered. bs6 08:02 D-Dimer Quant Ordered. EDMS 08:05 Misc Tableau Lead Order ordered. bs6 08:05 Repeat EKG (put time details section) ordered. bs6 08:08 Misc Tableau Lead Order complete. lbd 08:08 Repeat EKG (put time details section) complete. lbd 08:11 ECG WITH READING ER PHYS ordered. EDMS 08:11 CARDIAC MARKER PANEL Ordered. EDMS 08:12 Repeat EKG (put time details section) ordered. bs6 08:13 CT Chest Angio R/O PE Ordered. EDMS 08:16 Repeat EKG (put time details section) complete. lbd 08:18 ECG WITH READING ER PHYS ordered. EDMS 08:19 LORazepam 1 mg IVP once ordered. bs6 08:33 Ondansetron 4 mg IVP once ordered. bs6 09:22 LORazepam 1 mg IVP once ordered. bs6 09:54 Basic Metabolic Profile Reviewed. sd1 09:54 Cardiac Injury Profile Reviewed. sd1 09:54 Troponin Reviewed. sd1 09:54 LIPASE Reviewed. sd1 09:54 LIVER PROFILE Reviewed. sd1 09:54 D-Dimer Quant Reviewed. sd1 09:54 EKG-ADULT Reviewed. sd1 09:58 [facility] [place] Payment Agreement was scanned into [employer] and attached to record. lg 10:03 GI Cocktail - (Alum-Mag Hydroxide-Simeth 30 ml, Lidocaine 10 ml, Hyoscyamine 10 ml) PO bs6 once; Pre-mixed 50mL unit dose ordered. 10:03 Dilaudid - HYDROmorphone 0.5 mg IVP once ordered. bs6 10:29 CARDIAC MARKER PANEL Reviewed. sd1 12:57 Misc. Nursing Order ordered. sd1 09/08 11:54 T-Sheet-- Draft Copy was scanned into [employer] and attached to record. gb 11:55 ECG/EKG was scanned into [employer] and attached to record. gb 11:55 Trend VS was scanned into [employer] and attached to record. gb 11:55 Radiology Report was scanned into [employer] and attached to record. gb Administered Medications: 09/07 07:51 Drug: morphine 4 mg [morphine 4 mg/mL intravenous cartridge (1 mL)] Route: IVP; Site: [facility] left forearm; 08:21 Drug: ketorolac 30 mg [ketorolac 30 mg/mL (1 mL) injection solution (1 mL)] Route: IVP; [facility] Site: left forearm; 08:50 Follow up: Pain 06/14 Adult [facility] 08:26 Drug: LORazepam 1 mg [lorazepam 2 mg/mL injection solution (0.5 mL)] Route: IVP; Site: [facility] left forearm; 08:28 Drug: Aspirin 81 mg [aspirin 81 mg chewable tablet (1 tabs)] Route: PO; [facility] 08:49 Drug: Ondansetron 4 mg [ondansetron HCl 2 mg/mL intravenous solution (2 mL)] Route: 4 IVP; Site: left forearm; 09:31 Drug: LORazepam 1 mg [lorazepam 2 mg/mL injection solution (0.5 mL)] Route: IVP; Site: [facility] left forearm; 10:06 Follow up: BP 180 / 77; Pulse 98 bpm; Resp 20 bpm; Temp 96.8 Oral; Pulse Ox 100% RA; 4 Pain 10 Adult 10:06 Drug: GI Cocktail - (Alum-Mag Hydroxide-Simeth Suspension 225 mg-200 mg-25 mg/5 mL 30 jc4 ml, Lidocaine Liquid 2 % 10 ml, Hyoscyamine Liquid 10 ml) Route: PO; 10:31 Follow up: BP 132 / 69; Pulse 78 bpm; Resp 20 bpm; Pulse Ox 99% RA; Pain 8 Adult [facility] 10:30 Drug: Dilaudid - HYDROmorphone 0.5 mg [hydromorphone 1 mg/mL injection syringe (0.5 jc4 mL)] Route: IVP; Site: left forearm; Signatures: Dispatcher [employer] EDMS Bernadette Huitron MD MD sd1 Grace García, Hand Woodworking Sander Unit lbd WilburbernardozenaEda, Reg Reg gb DoraAl escoto, Reg Reg lg Ramila Daley RN RN jc4 Dulce Barahona, DO bs6 Tri ParraRN RN ko2 The chart was reviewed and I authenticate all verbal orders and agree with the evaluation and treatment provided.Corrections: (The following items were deleted from the chart) 07:51 07:30 LIPASE+LAB ordered. EDMS EDMS 07:51 07:30 LIVER PROFILE+LAB ordered. EDMS EDMS 09:05 09:02 SPUTUM CULTURE AND GRAM STAIN+SUKHJINDER ordered. EDMS EDMS Attachments: 09:58 [facility] Payment Agreement lg 09/08 11:54 T-Sheet-- Draft Copy gb 11:55 ECG/EKG gb Chart Complete MTDD
--- NOTE | 2016-09-09 15:42 | EDDOCDS ---
Nurse's Notes [facility] Name: Jennifer Mendiola Age: 35 yrs Sex: Female : 1980 Arrival Date: 09/07/2016 Time: 06:27 Bed 8 Private MD: Diagnosis: Other chest pain-Chest wall pain Presentation: 09/07 06:44 Presenting complaint: Patient states: shes been sick since Tuesday with nausea, cough, ko2 runny nose and "episodes of what felt like low blood sugar". Pt was taking over the counter medications but they weren't helping and pt has been unable to eat. She was at the movies with her kids last night and her back started hurting. Around 300 am she stated that she started taking short breaths as well as holding her breath as it hurt to much to take a deep breath. Aspirin was not taken prior to arrival. Adult Sepsis Screening: The patient does not have new or worsening altered mentation. Patient's respiratory rate is less than 22. Systolic blood pressure is greater than 100. Patient has a qSOFA score of 0- Negative Sepsis Screen. Suicide/Homicide risk assessment- the patient denies having any suicidal and/or homicidal ideations and does not present with any other emotional, behavioral or mental health complaints. Status: Patient is not a director agricultural services or dependent. Transition of care: patient was not received from another setting of care. 06:44 Acuity: LEXII Level 2 ko2 06:44 Method Of Arrival: Walkin/Carried/Asstd ko2 Triage Assessment: 07:15 Cardiovascular: Chest pain is described as Pain is 10 out of 10 on a pain scale. jc4 radiates Does not radiate. episodes are continuous began over night. 10:08 HIV screening NA for this visit Offered previously. 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 cetirizine 10 mg oral tab 1 tab once daily 2. acyclovir 400 mg Oral tab 1 tab 2 times per day 3. acyclovir ointment 4. Adderall XR 10 mg Oral cp24 1 cap once daily 5. Adderall XR 30 mg Oral cp24 1 cap once daily 6. Ambien 10 mg Oral tab 1 tab once daily 7. bactroban 22 gm 8. calcipotrene 120gm 9. cyclobenzaprine 10 mg Oral tab 1 tab 3 times per day 10. TriNessa Lo 0.18/0.215/0.25 mg-25 mcg oral tab 1 tab once daily 11. doxycycline hyclate 100 mg Oral cap 1 cap every 12 hours 12. Diflucan 200 mg oral tab 1 tab weekly 13. docusate sodium 100 mg Oral cap 1 cap 2 times per day 14. Drisdol 50,000 unit oral cap take 1 capsule as directed:TIW x 4wks, BIW x 8wks 15. furosemide 40 mg oral tab take 1 tab oral daily-bid as needed 16. magnesium oxide 400 mg Oral tab twice a day 17. omeprazole 40 mg Oral cpDR 1 cap once daily 18. ciclopirox topical topical take 1 small amount topical 2 times a day to affected toenails 19. Pristiq 100 mg Oral Tb24 20. propranolol 20 mg oral tab 2 times per day 21. Salex 6 % topical sham daily 22. senna 8.6 mg oral tab once daily 23. Xanax 0.5 mg oral tab 2 tabs 2x day prn 24. Zofran Oral take 4-8mg oral every 8 hours 25. Humira 40 mg/0.8 mL subcutaneous sykt 26. Probiotic Complex oral oral - PMHx: Sarcoidosis; Neurosarcoidosis; hyperlipidemia; Colitis; Lupus; Reynaud's; Syringomelia; - PSHx: Cholecystectomy; Appendectomy; - Family history: Not pertinent. - Social history: No barriers to communication noted, The patient speaks fluent Yakut, Smoking status: Patient states was never smoker of tobacco. - : The pt / caregiver states he / she is not on anticoagulants. Home medication list is obtained from home medication list. - Exposure Risk Screening:: None identified. Screenin:50 Screening information is obtained from the patient. Assistance ADL's: Requires jc4 assistance with medication administration, assistance is provided by family members. Abuse/DV Screen: The patient / caregiver reports he/she is: not in a situation that causes fear, pain or injury. 08:50 Fall risk: The following interventions are performed due to a positive Fall Risk jc4 Screen: Fall Risk is added to Special Handling on the patient Summary Screen. A Fall Risk Bracelet was applied to the patient. Side Rails are placed in the up position. A Call Motley is given with instruction to call for help when getting out of bed. 14:37 Fall risk: At risk due to apparent chemical impairment. Nutritional screening: No jc4 deficits noted. Advance Directives: There is no active DNR order. home support is adequate. Assessment: 08:20 General: Pt lying on stretcher. Sobbing, yelling on stretcher. Medicated per order. Pt jc4 reports squeezing pain in chest that radiates into back. 08:49 General: Pt lying on stretcher. Respirations easy and full. Pt complains of a squeezing jc4 sensation in chest, states is currently "10/10" at this time. No longer hyperventilating. Mother at bedside, supportive. 09:31 General: Pt lying on stretcher, moaning, uncomfortable. Complains of squeezing jc4 sensation in chest. States, "I just need something to relax the muscles". Crying. Mother at bedside, attentive and loving. 10:07 General: Appears uncomfortable. General: "my chest hurts, my back hurts, and this stuff jc4 isn't gonna take away the back pain". Pain: Pain currently is 10 out of 10 on a pain scale. Neurological: Level of Consciousness is awake, alert, Oriented to person, place, time. Cardiovascular: Rhythm is sinus rhythm No ectopy. Respiratory: Respiratory effort is even, Respiratory pattern is regular, symmetrical. Derm: Skin is pink, warm & dry. 10:09 General: When patient asked if she thought she could lie still for the CT, states, "not jc4 right now". 10:10 General: Pt refusing to keep blood pressure cuff on. jc4 10:24 General: Pt lying on stretcher, quiet and still until addressed, and then starts jc4 sniffing. States, "I need that combination. The pain medication and the Ativan". Pt made aware has additional medication orders. 10:31 General: Pt states, "the tightness is a little less, but it just hurts. It's like I've jc4 been in an accident, it hurts all over." Continues to sniffle. States, "Dilaudid always works". 11:15 General: Pt lying on stretcher with eyes closed. Respirations easy and full. Mom jc4 states, "she's finally sleeping". night custodian - sinus rhythm without ectopy. 12:47 General: Pt returned from CT. Lying on stretcher with eyes closed. Respirations easy jc4 and full. Pt states that pain "is starting to come back, can you let them know? I just don't want it to get too bad again". night custodian - sinus rhythm without ectopy. Mother at bedside. 14:34 General: Appears in no apparent distress, Behavior is cooperative. Neurological: jc4 patient is drowsy. Respiratory: Airway is patent Respiratory effort is even, unlabored, Respiratory pattern is regular, symmetrical. Derm: Skin is pink, warm & dry. Vital Signs: 06:41 BP 124 / 79 LA Supine (auto/reg); Pulse 88 MON; Resp 24 S; Temp 97.3(O); Pulse Ox 95% cln on R/A; Pain 9/10; 08:05 BP 127 / 91 (auto/); jc4 08:05 Pulse 82 MON; Pulse Ox 95% ; jc4 08:07 BP 158 / 113 (auto/); jc4 08:07 Pulse 106 MON; Pulse Ox 95% ; jc4 08:08 BP 158 / 113 RA Supine (auto/reg); dem1 08:09 BP 127 / 91 LA Supine (auto/reg); dem1 08:21 Weight 107.5 kg (R); Height 5 ft. 6 in. (167.64 cm); jc4 08:46 Pulse 66 MON; Pulse Ox 96% ; jc4 08:48 BP 128 / 64 (auto/); jc4 08:50 Pain 10/10; jc4 09:03 BP 137 / 73 (auto/); jc4 09:03 Pulse 72 MON; Pulse Ox 98% ; jc4 09:18 BP 199 / 98 (auto/); jc4 09:18 Pulse 74 MON; Pulse Ox 97% ; jc4 10:00 Pulse 62 MON; Pulse Ox 99% ; jc4 10:01 BP 180 / 77 (auto/); jc4 10:06 BP 180 / 77; Pulse 98; Resp 20; Temp 96.8(O); Pulse Ox 100% on R/A; Pain 10/10; jc4 10:22 Pulse 70 MON; Pulse Ox 98% ; jc4 10:23 BP 132 / 69 (auto/); jc4 10:31 BP 132 / 69; Pulse 78; Resp 20; Pulse Ox 99% on R/A; Pain 8/10; jc4 10:32 Pulse 80 MON; Pulse Ox 97% ; jc4 10:33 BP 123 / 64 (auto/); jc4 10:48 BP 124 / 63 (auto/); jc4 10:48 Pulse 82 MON; Pulse Ox 94% ; jc4 11:03 BP 126 / 66 (auto/); jc4 11:03 Pulse 78 MON; Pulse Ox 93% ; jc4 11:18 BP 122 / 64 (auto/); jc4 11:18 Pulse 76 MON; Pulse Ox 93% ; jc4 11:32 Pulse 84 MON; Pulse Ox 94% ; jc4 11:33 BP 129 / 72 (auto/); jc4 11:47 Pulse 84 MON; Pulse Ox 98% ; jc4 11:48 BP 117 / 56 (auto/); jc4 12:03 BP 108 / 58 (auto/); jc4 12:03 Pulse 62 MON; Pulse Ox 96% ; jc4 12:18 BP 109 / 56 (auto/); jc4 12:19 Pulse 64 MON; Pulse Ox 96% ; jc4 12:33 BP 95 / 53 (auto/); jc4 12:33 Pulse 66 MON; Pulse Ox 98% ; jc4 12:45 BP 105 / 50 (auto/); jc4 12:46 Pulse 62 MON; Pulse Ox 100% ; jc4 14:38 BP 118 / 68; Pulse 81; Resp 20; Temp 97.8(O); Pulse Ox 96% on R/A; jc4 08:21 Body Mass Index 38.25 (107.50 kg, 167.64 cm) [facility] Vitals: 14:36 Log In Time: September 07, 2016 at 06:29. [facility] ED Course: 06:28 Patient visited by Chata Stover. lja 06:28 Patient moved to Waiting lja 06:35 Tri Parra,RN is Primary Nurse. ko2 06:35 Patient moved to 8 ko2 06:38 Pt greeted and oriented to ED. Patient advised of names of staff involved in care, marissa location of call motley, wait times and NPO status. Accompanied by MOTHER, Patient has correct armband on for positive identification. Placed in gown. Bed in low position. Call light in reach. Side rails up X2. night custodian on. Pulse ox on. NIBP on. 06:41 Patient visited by Marce Mccabe PCA. cln 06:41 EKG done. (by ED staff). Reviewed by Chapin Zayas MD. cln 06:44 Patient visited by Tri Parra RN. ko2 06:47 Triage Initiated ko2 06:58 Bernadette Huitron MD is Attending Physician. sd1 07:00 Ramila Daley RN is Primary Nurse. jc4 07:07 Zulma Brown DO is PHCP. bs6 07:15 The patient / caregiver is instructed regarding the plan of care and ED course. jc4 07:23 Basic Metabolic Profile Sent. jc4 07:23 CBC with Diff Sent. jc4 07:23 Cardiac Injury Profile Sent. jc4 07:23 Troponin Sent. jc4 07:24 Inserted saline lock: 20 gauge in left forearm The patient tolerated the procedure well.jc4 07:28 Patient visited by Zulma Brown DO. bs6 07:28 Patient visited by Zulma Brown DO. bs6 07:31 Primary Nurse role handed off by Tri Parra RN kpj 08:10 Patient visited by Tai Menendez. dem1 08:35 EKG done. (by ED staff). Reviewed by Zulma Brown DO. dem1 08:36 EKG-ADULT Returned. EDMS 08:39 Patient visited by Tai Menendez. dem1 09:30 Patient visited by Ramila Daley RN. jc4 09:38 Patient visited by Lois Caldwell PCA. ct3 09:38 EKG done. (by ED staff). Reviewed by Bernadette Huitron MD. ct3 09:58 ID-[facility] Payment Agreement was scanned into [employer] and attached to record. lg 10:09 Patient visited by Ramila Daley RN. jc4 10:28 Patient visited by Ramila Daley RN. jc4 11:48 Patient visited by Ramila Daley RN. jc4 12:46 Patient visited by Lois Caldwell PCA. ct3 12:47 Patient visited by Ramila Daley RN. jc4 14:38 Discontinued lock intact, bleeding controlled, pressure dressing applied, No jc4 redness/swelling at site. No procedures done that require assistance. 15:51 CT Chest Angio R/O PE Returned. EDMS 15:51 portable chest Returned. EDMS 01 11:54 T-Sheet-- Draft Copy was scanned into [employer] and attached to record. gb 11:55 ECG/EKG was scanned into [employer] for [employer] and attached to record. gb 11:55 Trend VS was scanned into [employer] for [employer] and attached to record. gb 11:55 Radiology Report was scanned into [employer] for [employer] and attached to record. gb 20:04 ECG WITH READING ER PHYS Returned. EDMS 20:04 ECG WITH READING ER PHYS Returned. EDMS Administered Medications: 09/07 07:51 Drug: morphine 4 mg [morphine 4 mg/mL intravenous cartridge (1 mL)] Route: IVP; Site: [facility] left forearm; 08:21 Drug: ketorolac 30 mg [ketorolac 30 mg/mL (1 mL) injection solution (1 mL)] Route: IVP; [facility] Site: left forearm; 08:50 Follow up: Pain 06/14 Adult [facility] 08:26 Drug: LORazepam 1 mg [lorazepam 2 mg/mL injection solution (0.5 mL)] Route: IVP; Site: [facility] left forearm; 08:28 Drug: Aspirin 81 mg [aspirin 81 mg chewable tablet (1 tabs)] Route: PO; [facility] 08:49 Drug: Ondansetron 4 mg [ondansetron HCl 2 mg/mL intravenous solution (2 mL)] Route: 4 IVP; Site: left forearm; 09:31 Drug: LORazepam 1 mg [lorazepam 2 mg/mL injection solution (0.5 mL)] Route: IVP; Site: [facility] left forearm; 10:06 Follow up: BP 180 / 77; Pulse 98 bpm; Resp 20 bpm; Temp 96.8 Oral; Pulse Ox 100% RA; [facility] Pain 10 Adult 10:06 Drug: GI Cocktail - (Alum-Mag Hydroxide-Simeth Suspension 225 mg-200 mg-25 mg/5 mL 30 jc4 ml, Lidocaine Liquid 2 % 10 ml, Hyoscyamine Liquid 10 ml) Route: PO; 10:31 Follow up: BP 132 / 69; Pulse 78 bpm; Resp 20 bpm; Pulse Ox 99% RA; Pain 8 Adult jc4 10:30 Drug: Dilaudid - HYDROmorphone 0.5 mg [hydromorphone 1 mg/mL injection syringe (0.5 jc4 mL)] Route: IVP; Site: left forearm; Attachments: 11:55 Trend VS gb Order Results: Lab Order: Basic Metabolic Profile; SPEC'M 09/07/16 07:22 Test: GLUCOSE, FASTING; Value: 123; Range: 70-105; Abnormal: Above high normal; Units: MG/DL; Status: F Test: BLOOD UREA NITROGEN; Value: 13; Range: 7-18; Units: MG/DL; Status: F Test: CREATININE FOR GFR; Value: 0.77; Range: 0.55-1.02; Units: MG/DL; Status: F Test: GLOMERULAR FILTRATION RATE; Value: > 60.0; Range: >60; Status: F Test: SODIUM LEVEL; Value: 139; Range: 136-145; Units: MEQ/L; Status: F Test: POTASSIUM SERUM; Value: 4.5; Range: 3.5-5.1; Units: MEQ/L; Status: F Test: CHLORIDE LEVEL; Value: 103; Range: 98-107; Units: MEQ/L; Status: F Test: CARBON DIOXIDE LEVEL; Value: 28; Range: 21-32; Units: MEQ/L; Status: F Test: ANION GAP; Value: 8; Range: 8-16; Units: MEQ/L; Status: F Test: CALCIUM LEVEL; Value: 8.9; Range: 8.5-10.1; Units: MG/DL; Status: F Test Note: ; Units are mL/min/1.73 m2 Chronic Kidney Disease Staging per NKF: Stage I & II GFR >=60 Normal to Mildly Decreased Stage III GFR 30-59 Moderately Decreased Stage IV GFR 15-29 Severely Decreased Stage V GFR <15 Very Little GFR Left ESRD GFR <15 on JAVA CORE DEVELOPER Lab Order: CBC with Diff; SPEC'M 09/07/16 07:22 Test: WHITE BLOOD COUNT; Value: 7.1; Range: 4.0-10.0; Units: K/mm3; Status: F Test: RED BLOOD COUNT; Value: 4.40; Range: 4.00-5.40; Units: M/mm3; Status: F Test: HEMOGLOBIN; Value: 12.8; Range: 12.0-16.0; Units: g/dl; Status: F Test: HEMATOCRIT; Value: 37.9; Range: 36.0-47.0; Units: %; Status: F Test: MEAN CORPUSCULAR VOLUME; Value: 86.2; Range: 80.0-96.0; Units: fl; Status: F Test: MEAN CORPUSCULAR HEMOGLOBIN; Value: 29.1; Range: 27.0-33.0; Units: pg; Status: F Test: MEAN CORPUSCULAR HGB CONC; Value: 33.7; Range: 32.0-36.5; Units: g/dl; Status: F Test: RED CELL DISTRIBUTION WIDTH; Value: 17.2; Range: 11.5-14.5; Abnormal: Above high normal; Units: %; Status: F Test: PLATELET COUNT, AUTOMATED; Value: 271; Range: 150-450; Units: k/mm3; Status: F Test: NEUTROPHILS %; Value: 49.5; Range: 36.0-66.0; Units: %; Status: F Test: LYMPH %; Value: 41.5; Range: 24.0-44.0; Units: %; Status: F Test: MONO %; Value: 4.4; Range: 0.0-5.0; Units: %; Status: F Test: EOS %; Value: 1.5; Range: 0.0-3.0; Units: %; Status: F Test: BASO %; Value: 1.2; Range: 0.0-1.0; Abnormal: Above high normal; Units: %; Status: F Test: LARGE UNSTAINED CELL %; Value: 1.9; Range: 0.0-4.0; Units: %; Status: F Test: NEUTROPHILS #; Value: 3.5; Range: 1.8-7.7; Units: K/mm3; Status: F Test: LYMPH #; Value: 3.1; Range: 1.5-4.5; Units: K/mm3; Status: F Test: MONO #; Value: 0.3; Range: 0.0-0.8; Units: K/mm3; Status: F Test: EOS #; Value: 0.1; Range: 0.0-0.50; Units: K/mm3; Status: F Test: BASO #; Value: 0.1; Range: 0.0-0.2; Units: K/mm3; Status: F Test: LARGE UNSTAINED CELL #; Value: 0.1; Range: 0.0-0.4; Units: K/mm3; Status: F Lab Order: Cardiac Injury Profile; [facility] 09/07/16 07: Test: CPK CREATINE PHOSPHOKINASE; Value: 79; Range: 26-192; Units: U/L; Status: F Test: CK-MB VALUE MASS; Value: 1.0; Range: 0.0-3.6; Units: NG/ML; Status: F Test: MB/CK RELATIVE INDEX; Value: 1.26; Range: < OR =4; Status: F Test Note: ; DIAGNOSIS CRITERIA MMB ng/ml Relative Index (RI) NON-AMI < or = 5 N/A NICHOLAS ZONE > 5 < or = 4 AMI > 5 > 4 Lab Order: Troponin; [facility] 09/07/16 Test: TROPONIN I; Value: < 0.02; Range: < 0.10; Units: NG/ML; Status: F Test Note: ; Troponin I Reference Interval for [employer] LOCI: 99th Percentile= 0.00-0.045 ng/ml Risk Stratification: <= 0.10 ng/ml Decreased Risk for Adverse Clinical Events. 0.10-1.50 ng/ml Increased Risk for Adverse Clinical Events. Evaluation of additional criterion and/or repeat testing in 2-6 hours is suggested to rule out myocardial damage. >= 1.50 ng/ml Indicative of Myocardial Injury. Lab Order: LIPASE; [facility] 09/07/16: Test: LIPASE; Value: 236; Range: 73-393; Units: U/L; Status: F Lab Order: LIVER PROFILE; [facility] 09/07/16: Test: AST/SGOT; Value: 27; Range: 15-37; Units: U/L; Status: F Test: ALT/SGPT; Value: 32; Range: 12-78; Units: U/L; Status: F Test: ALKALINE PHOSPHATASE; Value: 80; Range: 45-117; Units: U/L; Status: F Test: BILIRUBIN,TOTAL; Value: 0.3; Range: 0.2-1.0; Units: MG/DL; Status: F Test: BILIRUBIN,DIRECT; Value: < 0.1; Range: 0.0-0.2; Units: MG/DL; Status: F Test: TOTAL PROTEIN; Value: 6.8; Range: 6.4-8.2; Units: GM/DL; Status: F Test: ALBUMIN; Value: 3.6; Range: 3.2-5.2; Units: GM/DL; Status: F Test: ALBUMIN/GLOBULIN RATIO; Value: 1.13; Range: 1.00-1.93; Status: F Lab Order: D-Dimer Quant; SPEC'M 09/07/16 08:18 Test: D-DIMER QUANT; Value: 417.5; Range: <500; Units: ng/ml; Status: F Lab Order: CARDIAC MARKER PANEL; SPEC'M 09/07/16 09:55 Test: CPK CREATINE PHOSPHOKINASE; Value: 56; Range: 26-192; Units: U/L; Status: F Test: CK-MB VALUE MASS; Value: 1.0; Range: 0.0-3.6; Units: NG/ML; Status: F Test: MB/CK RELATIVE INDEX; Value: 1.78; Range: < OR =4; Status: F Test: TROPONIN I; Value: < 0.02; Range: < 0.10; Units: NG/ML; Status: F Test Note: ; DIAGNOSIS CRITERIA MMB ng/ml Relative Index (RI) NON-AMI < or = 5 N/A NICHOLAS ZONE > 5 < or = 4 AMI > 5 > 4 Radiology Order: EKG-ADULT Test: EKG-ADULT REASON FOR EXAMINATION: Chest Pain; Stationary ECG Study; [facility] - ED; ; Test Date: 2016-09-07; Pat Name: JENNIFER MENDIOLA Department:; Room: -; Gender: F Tire Fabricator: que; : 1980 Requested By: Chapin Flores; Order Number: [id number] Renan MD: Bernadette Huitron; Measurements; Intervals Martin; Rate: 77 P: 40; WV: 143 QRS: -3; QRSD: 78 T: 44; QT: 381; QTc: 431; Interpretive Statements; SINUS RHYTHM WITH SINUS ARRHYTHMIA; LOW QRS VOLTAGE IN PRECORDIAL LEADS; DELAYED R PROGRESSION; SIMILAR 07/02/14; Electronically Signed On 09-07-2016 8:15:50 EST by Bernadette Huitron; Radiology Order: portable chest Test: portable chest REASON FOR EXAMINATION: Chest Pain; AP PORTABLE SITTING CHEST RADIOGRAPH: 09/07/2016; ; INDICATION: Chest pain; ; COMPARISON: Portable chest 05/21/2013 from [facility]; ; FINDINGS:; ; The cardiac silhouette and mediastinal silhouette are within normal limits. Lungs; are clear. Bones and soft tissues within normal limits.; ; IMPRESSION:; ; Negative portable chest radiograph.; ; ; Signed by; Cary Viveros MD 09/07/2016 08:31 P; Radiology Order: ECG WITH READING ER PHYS Test: ECG WITH READING ER PHYS REASON FOR EXAMINATION: CHEST PAIN (REPEAT EKG AT 0930); Stationary ECG Study; [facility] - ED; ; Test Date: 2016-09-07; Pat Name: JENNIFER MENDIOLA Department:; Room: -; Gender: F Tire Fabricator: elan; : 1980 Requested By: ZULMA BROWN; Order Number: [id number] Reading MD: Bernadette Huitron; Measurements; Intervals Martin; Rate: 71 P: 34; WV: 138 QRS: -14; QRSD: 90 T: 30; QT: 384; QTc: 420; Interpretive Statements; SINUS RHYTHM WITH MARKED SINUS ARRHYTHMIA; SIMILAR 09/07/16 6:40; Electronically Signed On 09-08-2016 19:31:04 EST by Bernadette Huitron; Radiology Order: CT Chest Angio R/O PE Test: CT Chest Angio R/O PE REASON FOR EXAMINATION: Chest Pain; CTA chest 09/07/2016; ; Indication: Chest pain; ; Comparison: CTA chest 07/02/2014 ; portable chest 09/07/2016; ; Technique: Following dynamic IV contrast administration of 75 ml Isovue 370; mg/ml, 3 mm spiral axial sections performed through chest.; ; Findings: The thoracic aorta is without aneurysm or visualized dissection.; There is some motion artifact in the ascending thoracic aorta. The cardiac; silhouette is borderline in size. There is persistent subcarinal adenopathy; measuring up to 10 mm size, borderline in size and unchanged. There are no; pathologically enlarged hilar nodes. There is homogeneous opacification of the; pulmonary arteries bilaterally without filling defects or findings to suggest; pulmonary artery emboli half interstitial changes are seen bilaterally most; compatible with interstitial scarring. There a small bibasilar bullous changes.; ; There is mild diffuse fatty infiltration of liver. Liver is 17.9 cm craniocaudal; dimension, borderline enlarged. The spleen is 12 cm in length, borderline in; size. It has been prior cholecystectomy. Visualized portions of pancreas within; normal limits; ; Impression; 1. No evidence of pulmonary artery emboli.; 2. Cardiac silhouette is borderline in size. Stable subcarinal adenopathy ,10 mm; short-axis diameter; 3. Bilateral interstitial changes most compatible with scarring. Nonspecific; pneumonitis may be considered less likely Small bullous changes also noted; bilaterally as can be seen with COPD.; 4. Spleen borderline in size. Mild diffuse fatty infiltration of liver; ; ; Signed by; Cary Viveros MD 09/07/2016 03:00 P; Radiology Order: ECG WITH READING ER PHYS Test: ECG WITH READING ER PHYS REASON FOR EXAMINATION: CHEST PAIN (REPEAT EKG NOW); Stationary ECG Study; [facility] - ED; ; Test Date: 2016-09-07; Pat Name: JENNIFER MENDIOLA Department:; Room: -; Gender: F Tire Fabricator: ct; : 1980 Requested By: ZULMA BROWN; Order Number: [id number] Reading MD: Bernadette Huitron; Measurements; Intervals Martin; Rate: 64 P: 21; WV: 147 QRS: -6; QRSD: 91 T: 29; QT: 404; QTc: 418; Interpretive Statements; SINUS RHYTHM; LOW QRS VOLTAGE IN PRECORDIAL LEADS; DECREASED RATE 09/07/16; Electronically Signed On 09-08-2016 19:35:03 EST by Bernadette Huitron; Outcome: 09/07 14:01 Discharge ordered by Provider. bs6 14:39 Discharge Assessment: Patient awake, alert and oriented x 3. No cognitive and/or jc4 functional deficits noted. Patient verbalized understanding of disposition instructions. patient administered narcotics - yes. Pt provided with safe discharge. The following High Risk Discharge criteria are identified: None. Discharged to home via wheelchair, with parent. Condition: stable. Discharge instructions given to patient, Instructed on discharge instructions, follow up and referral plans. medication usage, Demonstrated understanding of instructions, medications, Pt was receptive of discharge instructions/ teaching. Prescriptions given X 1. CT Study completed. Property :Personal belongings accompany Pt. 14:40 Patient left the ED. 4 Signatures: Dispatcher [employer] EDNY Bernadette Huitron MD MD sd1 Nadira Waters, RN RN kpj Eda Garcia, Reg Reg gb Al Pavon, Reg Reg lg Ramila Daley, RN RN jc4 Moshe, Albina, LEASING ASSISTANT LEASING ASSISTANT marissa Caldwell, Lois, LEASING ASSISTANT LEASING ASSISTANT ct3 Tai Menendez dem1 Zulma Brown, DO bs6 Tri Parra,RN RN ko2 Jolanta, Marce Mejia, LEASING ASSISTANT LEASING ASSISTANT cln Corrections: (The following items were deleted from the chart) 07:51 07:31 LIPASE+LAB sent. [facility] EDNY 07:51 07:31 LIVER PROFILE+LAB sent. [facility] EDNY 14:35 10:07 Respiratory: Respiratory effort is even, Respiratory pattern is regular, [place] [id number] Chart Complete MTDD
== END 2016-09-07 14:40 | disposition home or self-care (01) ==
LOC: M ED 06:27
DX: R07.89 Other chest pain (principal); D86.9 Sarcoidosis, unspecified; E78.5 Hyperlipidemia, unspecified; K52.9 Noninfective gastroenteritis and colitis, unspecified; M32.9 Systemic lupus erythematosus, unspecified; I73.00 Raynaud's syndrome without gangrene; G95.0 Syringomyelia and syringobulbia; Z79.899 Other long term (current) drug therapy; Z79.3 Long term (current) use of hormonal contraceptives; Z88.2 Allergy status to sulfonamides
CPT/HCPCS: 36415; 71010; 71275; 80048; 80076; 82550; 82553; 83690; 84484; 85025; 85379; 93005; 93041; 96374; 96375; 96376; 99285; J1170; J1885; J2060; J2405; Q9967

== ENCOUNTER → 2017-09-02 | Outpatient (REF) | payer MEDICARE, MEDICAID | LOC: M SFHCWAGY 16:50 | DX: Z30.49 Encounter for surveillance of other contraceptives (principal); Z79.899 Other long term (current) drug therapy | CPT/HCPCS: 85014 ==

== ENCOUNTER → 2017-12-31 | Outpatient (REF) | payer MEDICARE, MEDICAID ==
[2017-12-31 18:40] LABS: APPEARANCE, URINE CLOUDY (CLEAR); BACTERIA, URINE AUTO 1+ (NEGATIVE); BILIRUBIN, URINE AUTO NEGATIVE (NEGATIVE); BLOOD, URINE BLOOD 1+ (NEGATIVE); CALCIUM OXALATE CRYSTALS SMALL; COLOR, URINE YELLOW (YELLOW); GLUCOSE, URINE (UA) AUTO 1+ mg/dL (NEGATIVE); KETONE, URINE AUTO NEGATIVE (NEGATIVE); LEUKOCYTE ESTERASE, URINE AUTO 3+ (NEGATIVE); MUCUS, URINE SMALL (NEGATIVE); NITRITE, URINE AUTO NEGATIVE (NEGATIVE); PROTEIN, URINE AUTO 2+ mg/dL (NEGATIVE); RBC, URINE AUTO 21 /HPF (0-3); SPECIFIC GRAVITY URINE AUTO 1.024 (1.002-1.035); SQUAMOUS EPITHELIAL CELL UR AU 1 /HPF (0-6); UROBILINOGEN, URINE AUTO 0.2 mg/dL (0.0-2.0); WBC, URINE AUTO 179 /HPF (0-3)
== END ==
LOC: M LAB REF 13:56
DX: N39.0 Urinary tract infection, site not specified (principal)
CPT/HCPCS: 81001

== ENCOUNTER → 2018-12-23 | Outpatient (REF) | payer MEDICAID, MEDICARE, OTHER ==
[~2018-12-23] MED LIST changes: -/AMIT10TA PO; -/ONDA4TA PO; +AMIT1TAB10 PO; +ONDA-1 PO
== END ==
LOC: M LAB REF 09:28
PROVIDERS: ATTEND Physician Assistant
DX: R30.0 Dysuria (principal)

== ENCOUNTER → 2020-07-10 | Outpatient (CLI) | payer MEDICARE ==
--- NOTE | 2020-07-10 15:19 | REP ---
INDICATION: DYSPHAGIA, N/V UNSPECIFIED. COMPARISON: None. TECHNIQUE/RADIOTRACER AND DOSE: Patient received 1.02 mCi technetium 99 M sulfur colloid with 2 scrambled eggs and water. Clinical 2 minutes anterior and posterior images for 90 minutes were obtained. Ejection fraction calculated with a semi automated method FINDINGS: Anterior and posterior images show no visible evidence of gastroesophageal reflux during the course of 90 minutes of imaging. Peristalsis is observed into the duodenum and small bowel loops. With region of interest about the stomach the gallbladder ejection fraction was evaluated with a T1 half calculated at 95 minutes. Normal range T1/2 is 90 minutes. IMPRESSION: 1. There is no scintigraphic evidence of delayed gastric emptying. T1/2 95 minutes. No reflux demonstrated during the 90 minutes of imaging. <Electronically signed by Chaim Bermudez > 07/10/20 [id number]
== END ==
LOC: M RAD 13:09
PROVIDERS: ATTEND Specialist
DX: R30.0 Dysuria (principal); R11.10 Vomiting, unspecified
CPT/HCPCS: 78264; A9541

== ENCOUNTER → 2020-09-02 | Outpatient (CLI) | payer MEDICARE ==
[2020-09-02 18:06] LABS: ALBUMIN 3.9 GM/DL (3.2-5.2); BILIRUBIN,DIRECT 0.1 MG/DL (0.0-0.2); BILIRUBIN,TOTAL 0.5 MG/DL (0.2-1.0); TOTAL PROTEIN 7.5 GM/DL (6.4-8.2)
--- NOTE | 2020-09-02 18:43 | REP ---
INDICATION: PSORIASIS VULGARIS, LABS 1ST THEN XR. COMPARISON: September 07, 2016. TECHNIQUE: Two views.. FINDINGS: The lungs are well inflated and free of infiltrate. The pleural angles are sharp. The heart size is normal. Pulmonary vasculature is not increased. No significant bony abnormality is seen. There are clips in the right upper quadrant of the abdomen consistent with previous cholecystectomy. IMPRESSION: No active disease.. <Electronically signed by Juan Suero > 09/02/20 [id number]
== END ==
LOC: M LAB 16:58
DX: L40.0 Psoriasis vulgaris (principal)

== ENCOUNTER → 2022-04-30 | Outpatient (CLI) | payer MEDICARE | LOC: M RAD 11:35 | PROVIDERS: ATTEND Internal Medicine Gastroenterology | DX: R11.2 Nausea with vomiting, unspecified (principal); K30 Functional dyspepsia | CPT/HCPCS: 78264; A9541 ==

== ENCOUNTER → 2023-01-18 | Outpatient (CLI) | payer MEDICARE | LOC: M RAD 09:44 | PROVIDERS: ATTEND Physician Assistant Medical | DX: N63.32 Unspecified lump in axillary tail of the left breast (principal) ==

== ENCOUNTER → 2024-12-20 | Outpatient (REF) | payer MEDICARE ==
[2024-12-20 21:31] LABS: APPEARANCE, URINE HAZY (CLEAR); BACTERIA, URINE AUTO 1+ (NEGATIVE); BILIRUBIN, URINE AUTO NEGATIVE (NEGATIVE); BLOOD, URINE BLOOD 2+ (NEGATIVE); COLOR, URINE YELLOW (YELLOW); GLUCOSE, URINE (UA) AUTO NEGATIVE (NEGATIVE); KETONE, URINE AUTO NEGATIVE (NEGATIVE); LEUKOCYTE ESTERASE, URINE AUTO 3+ (NEGATIVE); MUCUS, URINE SMALL (NEGATIVE); NITRITE, URINE AUTO NEGATIVE (NEGATIVE); PROTEIN, URINE AUTO 2+ mg/dL (NEGATIVE); RBC, URINE AUTO 7 /HPF (0-3); SPECIFIC GRAVITY URINE AUTO 1.005 (1.002-1.035); SQUAMOUS EPITHELIAL CELL UR AU 0 /HPF (0-6); UROBILINOGEN, URINE AUTO 0.2 mg/dL (0.0-2.0); WBC, URINE AUTO TNTC /HPF (0-3)
== END ==
LOC: M LAB REF 20:51
PROVIDERS: ATTEND Physician Assistant
DX: N39.0 Urinary tract infection, site not specified (principal)

== ENCOUNTER → 2025-04-19 | Outpatient (REF) | payer MEDICARE ==
[2025-04-19 21:04] LABS: APPEARANCE, URINE HAZY (CLEAR); BACTERIA, URINE AUTO 1+ (NEGATIVE); BILIRUBIN, URINE AUTO NEGATIVE (NEGATIVE); BLOOD, URINE BLOOD 2+ (NEGATIVE); GLUCOSE, URINE (UA) AUTO NEGATIVE (NEGATIVE); KETONE, URINE AUTO NEGATIVE (NEGATIVE); LEUKOCYTE ESTERASE, URINE AUTO 2+ (NEGATIVE); MUCUS, URINE SMALL (NEGATIVE); NITRITE, URINE AUTO NEGATIVE (NEGATIVE); PROTEIN, URINE AUTO 2+ mg/dL (NEGATIVE); RBC, URINE AUTO 104 /HPF (0-3); SPECIFIC GRAVITY URINE AUTO 1.015 (1.002-1.035); SQUAMOUS EPITHELIAL CELL UR AU 2 /HPF (0-6); UROBILINOGEN, URINE AUTO 0.2 mg/dL (0.0-2.0); WBC, URINE AUTO 71 /HPF (0-3)
== END ==
LOC: M LAB REF 20:12
PROVIDERS: ATTEND Physician Assistant
DX: N39.0 Urinary tract infection, site not specified (principal)